=== PATIENT | male | born 1950 | race African-American/Black ===

== ENCOUNTER 2018-09-03 16:53 | Emergency (ER) | payer MEDICARE, MEDICAID ==
[~2018-09-03] VITALS: Ht 170.2 cm; Wt 62.5 kg
[2018-09-03] MEDS ORDERED: SODIUM CHLORIDE 0.9% 1,000 ML IV ONE (18:15)
[2018-09-03 18:24] LABS: BASOPHILS % 0.7 % (0.0-2.0); EOSINOPHILS % 5.5 % (0.0-5.0); HEMATOCRIT. 39.1 % (42.0-52.0); HEMOGLOBIN. 12.4 g/dL (14.0-18.0); LYMPHOCYTES % 22.8 % (20.0-50.0); MEAN CORPUSCULAR HEMOGLOBIN 23.6 pg (28.0-32.0); MEAN CORPUSCULAR VOLUME 74.3 fL (80.0-94.0); MEAN PLATELET VOLUME 9.1 fl (7.4-10.4); MONOCYTES % 8.7 % (2.0-8.0); NEUTROPHILS % 62.3 % (40.0-76.0); PLATELET 299 x1000/uL (130-400); RED BLOOD CELL COUNT 5.26 mill/uL (4.7-6.1); RED CELL DISTRIBUTION WIDTH 15.8 % (11.6-14.6)
[2018-09-03 18:26] LABS: CHLORIDE 109 mEq/L (98-107)
[2018-09-03 18:30] LABS: BG BASE EXCESS 0.5 mmol/L (-2.0-2.0); BG CARBOXYHEMOGLOBIN 3.9 % (0.5-1.5); BG HCO3 ACT 25.6 mmol/L (22.0-26.0); BG METHEMOGLOBIN 0.1 % (0.0-1.5); BG PCO2 42.8 mmHg (35.0-45.0); BG PH 7.394 (7.350-7.450); BG PO2 153.5 mmHg (75.0-100.0); BG SAMPLE SITE RIGHT BRACHIAL; BG VENT MODE NASAL CANNULA
[2018-09-03] MEDS ORDERED: HYDRALAZINE 20MG/ML VIAL IV ONE (20:30)
[2018-09-03] MEDS ORDERED: CLONIDINE 0.2MG TABLET PO ONE (20:30)
[2018-09-03 21:37] LABS: CLARITY URINE CLEAR (CLEAR); COLOR URINE YELLOW (YELLOW); KETONES URINE NEGATIVE (NEGATIVE); LEUKOCYTE ESTERASE URINE NEGATIVE (NEGATIVE); NITRITE URINE NEGATIVE (NEGATIVE); OCCULT BLOOD URINE NEGATIVE (NEGATIVE); PROTEIN URINE NEGATIVE (NEGATIVE); SPECIFIC GRAVITY URINE 1.018 (1.005-1.030)
[2018-09-03 21:40] LABS: *AMPHETAMINES SCREEN URINE NEGATIVE (NEGATIVE); *BARBITURATES SCREEN URINE NEGATIVE (NEGATIVE); *BENZODIAZEPINES SCREEN URINE NEGATIVE (NEGATIVE); *COCAINE SCREEN URINE NEGATIVE (NEGATIVE); METHADONE URINE SCREEN NEGATIVE (NEGATIVE)
[2018-09-03 21:41] LABS: CANNABINOID URINE SCREEN PRESUMTIVE POSITIVE (NEGATIVE); OPIATES URINE SCREEN NEGATIVE (NEGATIVE); PHENCYCLIDINE URINE SCREEN PRESUMTIVE POSITIVE (NEGATIVE)
[2018-09-03 22:51] VITALS: BP 146/53
== END 2018-09-03 22:54 | disposition home or self-care (01) ==
LOC: ER 17:12
DX: J70.5 Respiratory conditions due to smoke inhalation (principal); E86.0 Dehydration; J45.901 Unspecified asthma with (acute) exacerbation; F12.10 Cannabis abuse, uncomplicated; D50.9 Iron deficiency anemia, unspecified; R53.83 Other fatigue; I10 Essential (primary) hypertension; J44.9 Chronic obstructive pulmonary disease, unspecified; F10.20 Alcohol dependence, uncomplicated; Y90.0 Blood alcohol level of less than 20 mg/100 ml
CPT/HCPCS: 36415; 36600; 71250; 80053; 80305; 81003; 82375; 82805; 83735; 85025; 93005; 99284; J0360; J7030